=== PATIENT | male | born 1960 | race Caucasian/White ===

== ENCOUNTER 2019-06-07 14:26 | Emergency (ER) | payer MEDICAID, OTHER ==
[~2019-06-07] VITALS: Ht 177.8 cm; Wt 114.5 kg
[~2019-06-07 14:26] MED LIST: ATOR20TA66 PO; FAMO-1 PO; LEVO200T PO; LEVO25TA2 PO; MULT-1085 PO; TEMA15CA5 PO; ZES5T PO
[2019-06-07 14:40] VITALS: BP 126/86
[2019-06-07] MEDS ORDERED: LEVO750T21 PO (15:07)
[2019-06-07] MEDS ORDERED: ALBU8HFA PO (15:07)
== END 2019-06-07 15:17 | disposition home or self-care (01) ==
LOC: ER 14:26
DX: J20.9 Acute bronchitis, unspecified (principal); E03.9 Hypothyroidism, unspecified; F17.200 Nicotine dependence, unspecified, uncomplicated; Z88.1 Allergy status to other antibiotic agents; Z88.2 Allergy status to sulfonamides; Z79.899 Other long term (current) drug therapy
CPT/HCPCS: 99283

== ENCOUNTER 2022-08-14 04:42 | Emergency (ER) | payer MEDICAID, OTHER ==
[~2022-08-14] VITALS: Ht 177.8 cm; Wt 111.4 kg
[2022-08-14] MEDS ORDERED: nitroGLYCERIN 0.4mg SUBLingual tab SL ONE (05:00)
[2022-08-14] MEDS: nitroGLYCERIN 0.4mg SUBLingual tab SL PRN ×3 (05:02→05:15)
[2022-08-14 05:11] LABS: BASOPHILS # (AUTO) 0.1 X10'3 (0-0.2); BASOPHILS % (AUTO) 1.4 % (0-1); EOSINOPHILS # (AUTO) 0.1 X10'3 (0-0.9); EOSINOPHILS % (AUTO) 2.6 % (0-6); HEMATOCRIT 42.4 % (42.0-52.0); HEMOGLOBIN 14.7 g/dl (14.0-17.9); LYMPHOCYTES # (AUTO) 2.8 X10'3 (1.1-4.8); LYMPHOCYTES % (AUTO) 51.6 % (21-51); MEAN CORPUSCULAR HEMOGLOBIN 32.1 PG (27.0-31.0); MEAN CORPUSCULAR HGB CONC 34.7 g/dL (33.0-36.5); MEAN CORPUSCULAR VOLUME 92.6 FL (78-98); MEAN PLATELET VOLUME 7.5 FL (7.4-10.4); MONOCYTES # (AUTO) 0.2 X10'3 (0-0.9); MONOCYTES % (AUTO) 3.5 % (2-12); NEUTROPHILS # (AUTO) 2.2 X10'3 (1.8-7.7); NEUTROPHILS % (AUTO) 40.9 % (42-75); PLATELET COUNT 162 X10'3 (140-440); RED BLOOD COUNT 4.58 X10'6 (4.70-6.10); WHITE BLOOD COUNT 5.4 X10'3 (4.5-11.0)
[2022-08-14 05:47] LABS: ALANINE AMINOTRANSFERASE 75 U/L (12-78); ALBUMIN 3.8 G/DL (3.4-5.0); ALBUMIN/GLOBULIN RATIO 1.1 (1.1-1.5); ALKALINE PHOSPHATASE 160 IU/L (46-116); ANION GAP 5 (8-16); ASPARTATE AMINO TRANSFERASE 43 U/L (10-37); BILIRUBIN,TOTAL 0.4 MG/DL (0.1-1.0); BLOOD UREA NITROGEN 14 MG/DL (7-18); BUN/CREATININE RATIO 10.2 (10.0-20.0); CALCIUM 9.6 MG/DL (8.5-10.1); CHLORIDE 97 MMOL/L (99-107); CREATININE 1.37 MG/DL (0.60-1.10); LIPASE 141 U/L (73-393); PRO BRAIN NATRIURETIC PEPTIDE 31 PG/ML (0-125); SODIUM 133 MMOL/L (135-145); TOTAL CARBON DIOXIDE 30.7 MMOL/L (24-32); TOTAL PROTEIN 7.2 G/DL (6.4-8.2); eCRCL 59 ML/MIN; eGFR 53 ML/MIN
[2022-08-14 05:56] LABS: GLUCOSE 479 MG/DL (70-104)
[2022-08-14 06:02] LABS: INR 0.9 INR
[2022-08-14] MEDS ORDERED: fentaNYL/PF 50MCG/1 ML 2ML syringe IV ONE ×2 (06:10→08:25)
[2022-08-14] MEDS ORDERED: ondansetron/PF 4mg/2ml inj IV ONE (06:10)
--- NOTE | 2022-08-14 06:10 | NUR ---
His pain has increased, states in back again. MD made aware, she ordered fentanyl and CTA, pt informed.
[2022-08-14] MEDS ORDERED: iohexol 350MG/ML 100ml bottle IV ONE (06:45)
[2022-08-14] MEDS ORDERED: fentaNYL/PF 50MCG/1 ML 2ML syringe IV STA ×3 (07:19→19:12)
[2022-08-14] MEDS ORDERED: labetalol 20mg/4ml (5mg/ml) syringe IV STA (07:30)
[2022-08-14] MEDS ORDERED: esmolol/sodium cl bag 250 ML IV ONE ×2 (07:30→07:40)
--- NOTE | 2022-08-14 07:48 | NUR ---
Per Dr. Esteban, patient has aortic dissection. Pt will be transferring to another facility. Patient and family aware.
--- NOTE | 2022-08-14 08:04 | NUR ---
Per Dr. Esteban, the SBP goal for this patient is between 120-140 mmHg and he is ok with HR being < 60.
--- NOTE | 2022-08-14 08:28 | NUR ---
Dr. Esteban was notified about the patient's capillary blood sugar of 429 mg/dl when checked
[2022-08-14] MEDS ORDERED: insulin regular, human 10 units/0.1 ml syringe SQ ONE (08:50)
--- NOTE | 2022-08-14 08:50 | NUR ---
Dr. Esteban was notified about the patient's RR occasionally dropped as low as 8-9 after the Fentanyl was given. Per Dr. Esteban, its okay as long as paitent's O2 sat is okay. Patient arousable on verbal command. Pt sleepy due to Fentanyl given. O2 increased to 4 lpm/nc
--- NOTE | 2022-08-14 09:09 | NUR ---
Short episode of HR down to 47bpm, Dr. Esteban made aware, patient reports chest feeling better.
--- NOTE | 2022-08-14 09:12 | NUR ---
Dr. Esteban at bedside.
[2022-08-14 09:48] LABS: HEMOGLOBIN A1C > 12.0 % (4.5-6.2)
--- NOTE | 2022-08-14 10:35 | NUR ---
Patient will be transferring to [facility] ICU once bed is avaialable. Patient and family at bedside aware of the transfer need
--- NOTE | 2022-08-14 11:34 | NUR ---
Esmolol drip pasued, bp 112/91mmhg, HR 62, RR 21, Dr. Esteban made aware about patient's vital signs, ordered to paused and monitor, may resume when bp starts to elevate.
--- NOTE | 2022-08-14 11:59 | NUR ---
BP went up to 153/83, resumed Esmolol drip
--- NOTE | 2022-08-14 15:30 | NUR ---
PT BROTHER MARKUS LUKE [phone], WILL LIKE UPDATES ON WHEN HIS BROTHER WILL BE TRANSFERRED TO [facility]. [facility] HAS ACCEPTED PT AND WAITING FOR A ROOM.
[2022-08-14] MEDS: esmolol/sodium cl bag 250 ML IV SCH ×3 (16:04→23:21)
--- NOTE | 2022-08-14 16:34 | NUR ---
Per Dr. Ortiz, its okay if HR on the 40's as long as the blood pressure is not low.
[2022-08-14] MEDS ORDERED: niCARDipine-NS 40mg/200ml IVPB 200 ML IV SCH (22:15)
--- NOTE | 2022-08-14 23:03 | NUR ---
NICARDIPINE STARTED AT 5MG/HR. PER MD MAR: TITRATE BY 2.5MG/HR [id number], WHILE DECREASING ESMOLOL FROM 250MCG/KG/MIN BY 50MCG/KG/MIN TO MAINTAIN HR UNDER 70 AND MAINTAIN SBP WITHIN 130-150. DO NOT TURN OFF ESMOLOL ONCE THE RATE REACHES 50MCG/KG/MIN.
[2022-08-15] MEDS ORDERED: fentaNYL/PF 50MCG/1 ML 2ML syringe IV ONE
[2022-08-15 00:59] VITALS: BP 135/84; PULSE 55; RESP 10; O2SAT 99
== END 2022-08-15 02:55 | disposition short-term general hospital (02) ==
LOC: ER 04:42
DX: I71.019 Dissection of thoracic aorta, unspecified (principal)
CPT/HCPCS: 36415; 71045; 71275; 74174; 80053; 82948; 83036; 83690; 83880; 84484; 85025; 85610; 93005; 96365; 96368; 96372; 96375; 96376; 99285; J1815; J2405; J3010; J3490; Q9967; A4615

== ENCOUNTER 2023-08-16 12:01 | Emergency (ER) | payer OTHER ==
[~2023-08-16] VITALS: Ht 177.8 cm; Wt 90.9 kg
[~2023-08-16 12:01] MED LIST changes: -ATOR20TA66 PO; -FAMO-1 PO; -LEVO25TA2 PO; -MULT-1085 PO; -TEMA15CA5 PO; -ZES5T PO
[2023-08-16 12:06] VITALS: TEMP 96.5
[2023-08-16 12:38] LABS: BASOPHILS # (AUTO) 0.1 X10'3 (0-0.2); BASOPHILS % (AUTO) 0.5 % (0-1); EOSINOPHILS # (AUTO) 0.2 X10'3 (0-0.9); EOSINOPHILS % (AUTO) 1.7 % (0-6); HEMATOCRIT 36.8 % (42.0-52.0); HEMOGLOBIN 12.3 g/dl (14.0-17.9); LYMPHOCYTES # (AUTO) 3.7 X10'3 (1.1-4.8); LYMPHOCYTES % (AUTO) 30.4 % (21-51); MEAN CORPUSCULAR HEMOGLOBIN 29.5 PG (27.0-31.0); MEAN CORPUSCULAR HGB CONC 33.3 g/dL (33.0-36.5); MEAN CORPUSCULAR VOLUME 88.7 FL (78-98); MEAN PLATELET VOLUME 7.9 FL (7.4-10.4); MONOCYTES # (AUTO) 0.6 X10'3 (0-0.9); NEUTROPHILS # (AUTO) 7.5 X10'3 (1.8-7.7); NEUTROPHILS % (AUTO) 62.4 % (42-75); PLATELET COUNT 330 X10'3 (140-440); RED BLOOD COUNT 4.15 X10'6 (4.70-6.10); WHITE BLOOD COUNT 12.1 X10'3 (4.5-11.0)
[2023-08-16 12:52] LABS: ALBUMIN 3.8 G/DL (3.4-5.0); ANION GAP 11 (8-16); BLOOD UREA NITROGEN 45 MG/DL (7-18); BUN/CREATININE RATIO 24.9 (10.0-20.0); CALCIUM 10.3 MG/DL (8.5-10.1); CHLORIDE 99 MMOL/L (99-107); CREATININE 1.81 MG/DL (0.60-1.10); GLUCOSE 142 MG/DL (70-104); PRO BRAIN NATRIURETIC PEPTIDE 335 PG/ML (0-125); SODIUM 135 MMOL/L (135-145); TOTAL CARBON DIOXIDE 24.9 MMOL/L (24-32); eCRCL 44 ML/MIN; eGFR 38 ML/MIN
[2023-08-16] MEDS: normal saline 1000ML IV soln IVB ONE (13:04)
[2023-08-16] MEDS: normal saline 1000ml 1,000 ML IV ONE (13:53)
[2023-08-16 16:52] VITALS: BP 112/62; PULSE 70; RESP 19; O2SAT 96
== END 2023-08-16 17:05 | disposition home or self-care (01) ==
LOC: ER 12:01
DX: I95.9 Hypotension, unspecified (principal); R07.89 Other chest pain; Z88.2 Allergy status to sulfonamides; Z88.8 Allergy status to other drugs, medicaments and biological substances; E11.9 Type 2 diabetes mellitus without complications; E03.9 Hypothyroidism, unspecified; F15.90 Other stimulant use, unspecified, uncomplicated
CPT/HCPCS: 36415; 71045; 80048; 82948; 83880; 84484; 85025; 93005; 96360; 96361; 99285; J7030

== ENCOUNTER 2024-03-17 19:38 | Emergency (ER) | payer MEDICAID, OTHER ==
[~2024-03-17] VITALS: Ht 180.3 cm; Wt 104.1 kg
[2024-03-17 19:45] VITALS: BP 163/89; PULSE 99; RESP 14; TEMP 97.6; O2SAT 98
== END 2024-03-17 21:10 ==
LOC: ER 19:39
DX: Z02.89 Encounter for other administrative examinations (principal); I10 Essential (primary) hypertension; E03.9 Hypothyroidism, unspecified; E11.9 Type 2 diabetes mellitus without complications; Z88.2 Allergy status to sulfonamides; Z88.1 Allergy status to other antibiotic agents; Z79.899 Other long term (current) drug therapy; Z72.89 Other problems related to lifestyle; Z87.442 Personal history of urinary calculi; V87.7XXA Person injured in collision between other specified motor vehicles (traffic), initial encounter; Y93.89 Activity, other specified; Y92.410 Unspecified street and highway as the place of occurrence of the external cause; Y99.8 Other external cause status
CPT/HCPCS: 99283

== ENCOUNTER 2025-02-19 06:54 | Emergency (ER) | payer MEDICAID ==
[~2025-02-19] VITALS: Ht 177.8 cm; Wt 107.0 kg
[2025-02-19 06:55] VITALS: BP 155/87; PULSE 91; TEMP 97.7; O2SAT 98
--- NOTE | 2025-02-19 07:14 | Physician Documentation ---
History of Present Illness General Chief Complaint: Tooth Problem Stated Complaint: DENTAL PAIN Time Seen by MD: 07:13 Primary Medical Doctor: [facility] History of Present Illness Initial Comments The patient is a 64-year-old male he states he is having dental pain he has poor dentition and he has a cracked what appears to be incisor right upper tooth number seven, he is missing all the adjacent teeth. The patient states pain has been worse over last several days since he has been eating more than he normally does he also has a an appointment coming up in a week he denies any fevers or chills says the pain is moderate and persistent he is requesting antibiotics. Medication Reconciliation Allergies: Coded Allergies: No Known Allergies (Unverified , 02/19/25) Scheduled Amoxicillin Trihydrate (Amoxicillin), 2 CAP PO BID Levothyroxine Sodium (Synthroid), 1 TABLET PO DAILY, (Reported) Past Medical History Past Medical History: *CARDIOVASCULAR*, Hypertension, Kidney Stones, Diabetes, Hypothyroidism Past Surgical History: no surgical history Alcohol Use: Occasionally Lives In: Home Review of Systems All Other Systems at this time: Reviewed and Negative Physical Exam Physical Exam Vital Signs: Temperature: 97.7, Source: Oral, Heart Rate: 91, Respiratory Rate: 16, BP: 155/87, Pulse Oximetry: 98, Weight: 107.000 Oxygen Flow Rate: 0 Physical Exam VITALS: Reviewed and as above. GENERAL: Alert, no apparent distress. HEENT: Normocephalic, atraumatic, PERRL, EOMI, dry mucosa, no erythema the patient has a cracked tooth 7. He is missing the adjacent teeth there was no gingival fluctuance there is tenderness over the cracked exposed tooth root RESPIRATORY: Lungs clear, normal breath sounds, no respiratory distress. BACK: No CVA tenderness, or swelling MUSCULOSKELETAL: No deformities, no edema SKIN: Warm and dry, no rash NEURO: Oriented x4, No motor or sensory deficit PSYCH: Normal mood and affect, no agitation Progress Results/Orders Results/Orders Completed Orders - OHLFSGAETANO MD Hydrocodone/Apap 10/325 ([place] 10/325mg (02/19/25 07:30) Amoxicillin Capsule (Trimox Capsule) (02/19/25 07:30) Vital Signs 02/19/25 02/19/25 06:55 07:38 Temp 97.7 Pulse 91 Resp 16 17 B/P (MAP) 155/87 Pulse Ox 98 O2 Flow Rate 0 Medical Decision Making Additional information obtaine: old records Findings 64-year-old male with a cracked incisor no evident drainable abscess the patient was given a dose of pain medication here and he was also started on antibiotics the patient will be advised to follow up as an outpatient he will be given a prescription for antibiotics. The patient's prior hospitalizations have been reviewed his pulse oximetry was interpreted as adequate normal Differential Diagnosis v Departure Time of Disposition: 07:33 Disposition: 01 HOME / SELF CARE / HOMELESS Impression: Primary Impression: Pain, dental Discharge Instructions: Dental Pain Referrals: NO PRIMARY CARE PROVIDER (PCP) Prescriptions Amoxicillin Trihydrate (Amoxicillin) 500 Mg Capsule 2 CAP PO BID, #56 CAP Prov: GAETANO GARCIA MD 02/19/25 Signature Scribe Signature: none Attestation: The note accurately reflects work and decisions made by me.Gaetano Garcia MD 02/20/25 07:01 GAETANO GARCIA MD Feb 19, 2025 07:14
[2025-02-19] MEDS ORDERED: AMOX-101 PO (07:31)
[2025-02-19 07:38] VITALS: RESP 17
[2025-02-19] MEDS: HYDROcodone/acetaminophen 10/325mg tab PO ONE (07:38)
== END 2025-02-19 07:43 | disposition home or self-care (01) ==
LOC: ER 06:54
DX: K08.89 Other specified disorders of teeth and supporting structures (principal); I10 Essential (primary) hypertension; E11.9 Type 2 diabetes mellitus without complications; E03.9 Hypothyroidism, unspecified; Z87.442 Personal history of urinary calculi; Z79.899 Other long term (current) drug therapy; Z72.89 Other problems related to lifestyle
CPT/HCPCS: 99283